=== PATIENT | female | born 1985 | race Caucasian/White ===

== ENCOUNTER 2018-10-29 13:25 | Emergency (ER) | payer SELFPAY ==
[~2018-10-29] VITALS: Ht 160 cm; Wt 62.7 kg
[2018-10-29 13:41] VITALS: BP 108/80
--- NOTE | 2018-10-29 13:50 | NUR ---
PT BIBA TO ED BED 05
--- NOTE | 2018-10-29 13:57 | NUR ---
PT BIBA TO ED FOR EVALUATION OF RT ANKLE PAIN. PT STATED TRIPPED AND FELL, RT ANKLE TWISTED 2 HRS AGO. PT AAO X4, GCS 15, RESPIRATIONS EVEN AND UNLABORED, BL LUNG CLEAR. SKIN WARM/PINK/DRY, +PMSC. RT ANKLE SWOLLEN, PEDALIS PULSE PRESENTS AND STRONG, ABLE TO MOVE ALL TOES. RT LEG SPLINT IN PLACED. CAP REFILLS < 3 SECS. VSS, STATED PAIN 10/10. ED PROVIDER MADE AWARE OF PT STATUS. WILL CONTINUE TO MONITOR
--- NOTE | 2018-10-29 14:04 | NUR ---
XRAY AT BEDSIDE
[2018-10-29] MEDS ORDERED: MORPHINE SULFATE 4 MG/ML SYR IM STA (14:15)
[2018-10-29] MEDS ORDERED: MORPHINE SULFATE 2 MG/ML SYR IVP ONE (15:00)
--- NOTE | 2018-10-29 16:27 | NUR ---
PT CRYING AND STATED PAIN 01/20. MADE AWARE OF PT STATUS
[2018-10-29] MEDS ORDERED: ACETAMINOPHEN 325 MG TAB PO ONE (16:45)
[2018-10-29] MEDS ORDERED: KETOROLAC 15 MG/ML VIAL IM ONE (17:20)
--- NOTE | 2018-10-29 17:29 | NUR ---
Patient discharged with v/s stable. Written and verbal after care instructions given and explained. Patient verbalized understanding. Ambulatory with steady gait. All questions addressed prior to discharge. Advised to follow up with PMD. APPLIED RT BOOT IMMOBILIZER, AMBULATED BY USING CRUTCHES
[2018-10-29 17:31] VITALS: BP 137/90
== END 2018-10-29 17:29 | disposition home or self-care (01) ==
LOC: MED 13:25
DX: S96.911A Strain of unspecified muscle and tendon at ankle and foot level, right foot, initial encounter (principal); M25.561 Pain in right knee; X50.1XXA Overexertion from prolonged static or awkward postures, initial encounter; Y93.39 Activity, other involving climbing, rappelling and jumping off; Y92.89 Other specified places as the place of occurrence of the external cause; Y99.8 Other external cause status
CPT/HCPCS: 73562; 73590; 73610; 81025; 96372; 96374; 99284; J1885; J2270; Q0092